=== PATIENT | female | born 1960 | race Caucasian/White ===

== ENCOUNTER 2025-02-22 14:47 | Emergency (ER) | payer MEDICARE, MEDICAID, SELFPAY ==
--- OUTSIDE RECORDS SUMMARY | 2025-02-22 14:57 | XMS_ITS | Clinical Summary ---
Author Organization [facility] Address [address] [place] [address] Care Team Providers Care Public Health Name Role Phone Julio Hartman MD Primary Care Provider [phone] Allergies Active Allergy Reactions Criticality Noted Date Comments Alpha-Gal (Crkqgloxf-Nxvwn-9,3-G alactose) Rash,Swelling Low 01/15/2025 Dexamethasone Other (See Comments) 09/29/2021 Shortness of breath and urinary incontinence Venom-Wasp Anaphylaxis High 06/28/2023 Medications multivitamin (DAILY-MORGAN) tablet Take 1 Tablet by mouth daily. Active EPINEPHrine (EPIPEN) 0.3 mg/0.3 mL Auto-InjectorInd ications:History of anaphylaxis Inject 0.3 mL (0.3 mg) by intramuscular injection 1 time daily as needed for Anaphylaxis. 1 Each 1 10/02/19 24 Active ketoconazole (NIZORAL) 2 % ShampooIndicatio ns:Tinea Apply 5 mL to affected area daily. 120 mL 5 10/02/19 24 Active rosuvastatin (CRESTOR) 20 mg tabletIndication s:Mixed hyperlipidemia,H istory of [place] (myocardial infarction) Take 1 Tablet (20 mg) by mouth daily. 100 Tablet 3 07/16/19 25 Active lisinopriL (PRINIVIL) 10 mg tabletIndication s:HTN (hypertension), benign Take 1 Tablet (10 mg) by mouth daily. 100 Tablet 3 07/16/19 25 Active albuterol sulfate HFA 90 mcg/actuation aerosol inhalerIndicatio ns:Chronic obstructive pulmonary disease, unspecified COPD type (CMS/HCC) Take 2 Puffs by inhalation every 4 hours as needed for Shortness of Breath. 9 Gram 2 07/16/19 25 Active formoterol (Perforomist) 20 mcg/2 mL Solution for Nebulization USE 1 VIAL IN NEBULIZER TWICE DAILY - - Morning And Evening 100 mL 11 07/23/19 25 Active budesonide (PULMICORT RESPULE) 0.5 mg/2 mL Suspension for Nebulization USE 1 VIAL IN NEBULIZER TWICE DAILY - - Rinse Mouth After Treatment 100 mL 07/23/19 25 Active hydrOXYzine HCL (ATARAX) 10 mg tabletIndication s:Rash and nonspecific skin eruption Take 1 Tablet (10 mg) by mouth 3 times daily as needed for Itching. 45 Tablet 12/21/19 25 Active cetirizine (ZyrTEC) 10 mg tablet Take 10 mg by mouth daily. Active spironolactone (ALDACTONE) 25 mg tablet Take 1 Tablet (25 mg) by mouth daily. 30 Tablet 5 02/15/20 25 Active Active Problems Problem Noted Date Diagnosed Date Cirrhosis of liver with ascites 02/14/2025 Fatty liver 01/15/2025 Moderate major depression 01/15/2025 Liver disease 08/23/2023 Splenomegaly 08/23/2023 Diverticulosis 08/23/2023 Calculus of gallbladder with out cholecystitis without obstruction 08/23/2023 Bilateral renal cysts 08/23/2023 History of anaphylaxis 10/04/2021 History of juvenile arthritis 10/04/2021 H/O solitary pulmonary nodule 10/04/2021 HTN (hypertension), benign 03/09/2021 Family history of [place] (my[place] infarction) History of [place] (myocardial infarction) 03/09/2021 History of colon polyps 03/09/2021 COPD (chronic obstructive pulmonary disease) 07/2018 Hyperlipidemia 09/18/2014 Tobacco abuse 08/19/2014 History of breast cancer in female 08/19/2014 Iron deficiency anemia 08/19/2014 Hypokalemia 07/04/2014 Knee pain 02/16/2012 Unspecified internal derangement of knee 012 Resolved Problems Problem Noted Date Diagnosed Date Resolved Date Severe obesity (BMI 35.0-39. 9) with comorbidity 03/09/2021 07/15/2024 Abnormal liver function test 09/18/2014 03/09/2021 Chest pain 07/04/2014 03/09/2021 Encounters Date Type Department Care Team Description 02/10/[address] [phone] Julio Hartman MD Provider Call 02/05/2025 5:32 PM SENIOR DATA WAREHOUSE DEVELOPER - 02/05/2025 11:59 PM SENIOR DATA WAREHOUSE DEVELOPER Hospital Encounter [facility] [address] [place] [phone] Julio Hartman MD Discharge Disposition: Home or Self Care 01/22/2025 1:42 PM SENIOR DATA WAREHOUSE DEVELOPER - 01/22/2025 11:59 PM SENIOR DATA WAREHOUSE DEVELOPER Hospital Encounter [address] [place] [phone] Julio Hartman MD Discharge Disposition: Home or Self Care 01/22/2025 Results Follow-Up [address] [phone] Julio Hartman MD US VENOUS DOPPLER LEG LEFT, PROTIME-INR, LIVER FIBROSIS, FIBROSIS-4 (FIB-4) INDEX PANEL, Additional followed-up results: 4 01/15/2025 2:40 PM CDT Office Visit [address] [phone] Julio Hartman MD Medicare annual wellness visit, subsequent (Primary Dx); Screening mammogram, encounter for; Pain and swelling of left lower extremity; Fatty liver; Scabies; Allergic reaction to alpha-gal; Abnormal findings on diagnostic imaging of liver and biliary tract; Moderate major depression (CMS/HCC) 01/07/2025 External Device Data ST[facility] ABSTRACTION Provider, Abstract 01/02/2025 Results Follow-Up [address] [phone] Sarah Eddy NP ALLERGY PANEL, FOOD AND TREE NUTS W/COMP, ALPHA-GAL PANEL 12/31/2024 10:40 AM CDT Office Visit [address] [phone] Sarah Eddy NP Scabies (Primary Dx); Cellulitis of left lower extremity; Urticaria; Abdominal pain, unspecified abdominal location; Allergic contact dermatitis, unspecified trigger 12/11/2024 2:20 PM CDT Office Visit [facility] [place] [address] [facility] [address] [place] [address] Monica Chen, FITO Cellulitis of left lower extremity (Primary Dx); Edema leg from Last 3 Months Immunizations Immunization Administration Dates Next Due INFLUENZA VACCINE HIGH DOSE TRIVALENT SPLIT VIRUS, (65 YR UP), 0.5ML (PF), IM 01/15/2025 Family History Medical History Relation Name Comments Cancer Father Colon Cancer Father Heart Disease Father Other Mother Thyroid Disease Mother Lung Cancer Paternal Aunt Diabetes Paternal Grandmother Heart Disease Sister Depression Son Breast Cancer Neg Hx SELF POSITIVE RESPONSE Kidney Disease Neg Hx Liver Disease Neg Hx Ovarian Cancer Neg Hx Stroke Neg Hx Relation Name Status Comments Father Mother Paternal Aunt Paternal Grandmother Sister Son Social History Tobacco Use Types Packs/Day Years Used Date Smoking Tobacco: Every Day Cigarettes 0.5 37 Smokeless Tobacco: Never Tobacco Cessation:Ready to Q uit: No; Counseling Given: Yes Alcohol Use Standard Drinks/Week Comments No 0 (1 standard drink = 0.6 oz pur e alcohol) Financial Resource Strain Answer Date R ecorded How hard is it for you to pa y for the very basics like food, housing, medical care, and heating? Patient declined 05/13/2022 Food Insecurity Answer Date Recorded In the past 12 months, have you worried that your food would run out before you had money to buy more? Patient declined 2022 In the past 12 months, did y ou run out of food and didn't have money to buy more? Patient declined 05/13/2022 Transportation Needs Answer Date Record ed In the past 12 months, has l ack of transportation kept you from medical appointments or from getting medications? Patient declined 05/13/2022 Lack of Transportation (Non-Medical) Not on file 05/13/2022 Feeling Safe Answer Date Recorded Are you in a relationship wi th someone who hurts you emotionally and/or physically? No 08/25/2024 Comments No Sex and Gender Information Value Date Recorded Sex Assigned at Not on file Legal Sex Female 6:17 AM SENIOR DATA WAREHOUSE DEVELOPER Gender Identity Not on file Sexual Orientation Not on file Last Filed Vital Signs Vital Sign Reading Time Taken Comments Blood Pressure 108/78 01/15/2025 2:38 PM CDT Pulse 87 01/15/2025 2:38 PM CDT Temperature 36.4 C (97.6 F) 01/15/2025 2:38 PM CDT Respiratory Rate 16 01/15/2025 2:38 PM CDT Oxygen Saturation 100% 01/15/2025 2:38 PM CDT Inhaled Oxygen Concentration - - Weight 75.6 kg (166 lb 9.6 oz) 01/15/2025 2:38 P M CDT Height 152.4 cm (5') 01/15/2025 2:38 PM CDT Body Mass Index 32.54 01/15/2025 2:38 PM CDT Plan of Treatment Upcoming Encounters Date Type Department Care Team (Late st Contact Info) Description 07/15/2025 10:00 AM CDT Office Visit [address] [phone] Monica Chen, FITO [address] [address] 01/19/2026 11:00 AM SENIOR DATA WAREHOUSE DEVELOPER Office Visit [address] [phone] Julio Hartman MD [address] [address] Health Maintenance Due Date Last Done Comments DTAP/TDAP/TD VACCINES (1 - Tdap) 07/13/1978 PNEUMOCOCCAL VACCINE 50+ YEA RS (1 of 2 - PCV) 07/13/1978 FIT-DNA Q 3 years 07/13/2004 FIT/FOBT Q 1 year 07/13/2004 Flex Sig/CT Colonography Q 5 years 07/13/2004 RSV VACCINE (60+ or ) (1 - Risk 50-74 years 1-dose series) 07/13/2009 ZOSTER VACCINE (1 of 2) 07/13/2009 BREAST CANCER SCREENING 09/09/2015 09/08/2014, 09/05 Pre-Diabetes and Diabetes Screening 08/28/2017 08/28/2014 OSTEOPOROSIS SCREENING 07/13/2024 COVID-19 Vaccine (2 6 season) 2024 09/24/2020, 08/21/2020 COLORECTAL SCREENING 07/10/2026 07/11/2023, 07/11/2023, 09/03/2014 Colorectal Cancer Screening 07/10/2026 INFLUENZA VACCINE Completed 01/15/2025, , 11/22/2022, Additional history exists Medicare Ad[place] ([place]) Preventative Visit/Annual Wellness Visit Completed 01/15/2025, 05/13/2022 Procedures Procedure Name Priority Date/Time Associated Diagnosis Comments US ABDOMEN LIMITED Routine 02/05/2025 6: 21 PM SENIOR DATA WAREHOUSE DEVELOPER Fatty liver US VENOUS DOPPLER LEG LEFT Stat 01/22/2025 2:23 PM SENIOR DATA WAREHOUSE DEVELOPER Pain and swelling of left lower extremity CBC WITH DIFFERENTIAL Routine 01/15/2025 3:42 PM CDT Fatty liver COMPREHENSIVE METABOLIC PANEL Routine 01/15/2025 3:42 PM CDT Fatty liver ALPHA FETOPROTEIN TUMOR MARKER Routine 01/15/2025 3:42 PM CDT Fatty liver Abnormal findings on diagnostic imaging of liver and biliary tract LIVER FIBROSIS, FIBROSIS-4 (FIB-4) INDEX PANEL Routine 01/15/2025 3:42 PM CDT Fatty liver PROTIME-INR Routine 01/15/2025 3:42 PM CDT Fatty liver ALPHA-GAL PANEL Routine 12/31/2024 11:17 AM CDT Abdominal pain, unspecified abdominal location Allergic contact dermatitis, unspecified trigger ALLERGY PANEL, FOOD AND TREE NUTS W/COMP Routine 12/31/2024 11:17 AM CDT Abdominal pain, unspecified abdominal location Allergic contact dermatitis, unspecified trigger COLONOSCOPY REPORT 07/11/2023 2: 30 PM CDT MAMMO SCREEN BILAT W OR WO CAD Routine 09/05/2014 3:45 PM CDT Other screening mammogram HEMOGLOBIN A1C Routine 08/28/2014 8:25 AM CDT from Last 3 Months or Most Recently Relevant to Health Maintenance Results * US ABDOMEN LIMITED (02/05/2025 6:21 PM SENIOR DATA WAREHOUSE DEVELOPER) Anatomical Region Laterality Modality Abdomen Ultrasound 02/05/2025 6:21 PM SENIOR DATA WAREHOUSE DEVELOPER Impressions 02/07/2025 11:03 AM SENIOR DATA WAREHOUSE DEVELOPER IMPRESSION: 1. Cirrhotic morphology of the liver. 2. No hepatic mass is identified. 3. Small to moderate amount of ascites. 4. Cholelithiasis. 5. Nonspecific mild diffuse wall-thickening of the gallbladder. This could be due to congestive heart failure, cirrhosis, hepatitis, ascites, cholecystitis, or nearby inflammatory process. Narrative 02/07/2025 11:03 AM SENIOR DATA WAREHOUSE DEVELOPER EXAM: US ABDOMEN LIMITED, DIAGNOSIS/REASON FOR EXAM: Fatty liver. DATE: 02/05/2025 6:21 PM. COMPARISON: None. TECHNIQUE: Multiplanar real-time ultrasonography of the right upper quadrant using de la fuente-scale imaging, supplemented by color and spectral Doppler as needed. FINDINGS: * Liver: The liver is normal in size and nodular in contour. Its parenchyma is diffusely coarsened in echotexture. No hepatic mass is identified. Portal venous flow is hepatopedal. * Gallbladder: The gallbladder is mildly distended. It contains a few small echogenic gallstones with posterior shadowing. The largest measures 2.4 x 2.1 cm. There is mild diffuse gallbladder wall-thickening. * Pancreas: The partially visualized pancreas is unremarkable. * Biliary: No intrahepatic or extrahepatic biliary ductal dilatation is seen. The common bile duct measures 7 mm. * Right kidney: The right kidney measures 11.1 cm in length. Its parenchyma is normal in echotexture. No right renal masses or renal calculi are identified. There is no right hydronephrosis. * Peritoneum: A kzpng-mo-dftlzmec amount of anechoic free intraperitoneal fluid is seen in all four quadrants of the abdomen. Procedure Note Pio Forrester MD - 02/07/2025 EXAM: US ABDOMEN LIMITED, DIAGNOSIS/REASON FOR EXAM: Fatty liver. DATE: 02/05/2025 6:21 PM. COMPARISON: None. TECHNIQUE: Multiplanar real-time ultrasonography of the right upper quadrant using de la fuente-scale imaging, supplemented by color and spectral Doppler as needed. FINDINGS: * Liver: The liver is normal in size and nodular in contour. Its parenchyma is diffusely coarsened in echotexture. No hepatic mass is identified. Portal venous flow is hepatopedal. * Gallbladder: The gallbladder is mildly distended. It contains a few small echogenic gallstones with posterior shadowing. The largest measures 2.4 x 2.1 cm. There is mild diffuse gallbladder wall-thickening. * Pancreas: The partially visualized pancreas is unremarkable. * Biliary: No intrahepatic or extrahepatic biliary ductal dilatation is seen. The common bile duct measures 7 mm. * Right kidney: The right kidney measures 11.1 cm in length. Its parenchyma is normal in echotexture. No right renal masses or renal calculi are identified. There is no right hydronephrosis. * Peritoneum: A hpjdc-gc-xyiiqksk amount of anechoic free intraperitoneal fluid is seen in all four quadrants of the abdomen. IMPRESSION: 1. Cirrhotic morphology of the liver. 2. No hepatic mass is identified. 3. Small to moderate amount of ascites. 4. Cholelithiasis. 5. Nonspecific mild diffuse wall-thickening of the gallbladder. This could be due to congestive heart failure, cirrhosis, hepatitis, ascites, cholecystitis, or nearby inflammatory process. Julio Hartman MD US ORDERABLES Final Res ult * US VENOUS DOPPLER LEG LEFT (01/22/2025 2:23 PM SENIOR DATA WAREHOUSE DEVELOPER) Anatomical Region Laterality Modality Lower Extremity Ultrasound 01/22/2025 2:23 PM SENIOR DATA WAREHOUSE DEVELOPER Impressions 01/22/2025 2:36 PM SENIOR DATA WAREHOUSE DEVELOPER IMPRESSION: 1. No sonographic evidence of a DVT in the right lower extremity. 2. Mild right inguinal lymphadenopathy. Narrative 01/22/2025 2:36 PM SENIOR DATA WAREHOUSE DEVELOPER EXAM: US VENOUS DOPPLER LEG LEFT DIAGNOSIS/REASON FOR EXAM: Pain and swelling of left lower extremity. DATE AND TIME: 01/22/2025, 2:23 PM. COMPARISON: None. TECHNIQUE: Grayscale and color Doppler transversal longitudinal ultrasound images of the deep veins of the left lower extremity were obtained. FINDINGS: The left common femoral, superficial femoral, profunda femoral, popliteal, posterior tibial and peroneal veins are anechoic and compressible. Spontaneous flow is demonstrated within the right common femoral and popliteal veins. A right inguinal lymph node measures 2.8 x 1.1 x 4.3 cm. A second right inguinal lymph node measures 1.6 x 0.7 x 3.4 cm. These lymph nodes have retiform contours, centimeters with fatty sharon. Procedure Note Pio Forrester MD - 01/22/2025 EXAM: US VENOUS DOPPLER LEG LEFT DIAGNOSIS/REASON FOR EXAM: Pain and swelling of left lower extremity. DATE AND TIME: 01/22/2025, 2:23 PM. COMPARISON: None. TECHNIQUE: Grayscale and color Doppler transversal longitudinal ultrasound images of the deep veins of the left lower extremity were obtained. FINDINGS: The left common femoral, superficial femoral, profunda femoral, popliteal, posterior tibial and peroneal veins are anechoic and compressible. Spontaneous flow is demonstrated within the right common femoral and popliteal veins. A right inguinal lymph node measures 2.8 x 1.1 x 4.3 cm. A second right inguinal lymph node measures 1.6 x 0.7 x 3.4 cm. These lymph nodes have retiform contours, centimeters with fatty sharon. IMPRESSION: 1. No sonographic evidence of a DVT in the right lower extremity. 2. Mild right inguinal lymphadenopathy. Julio Hartman MD US ORDERABLES Final Res ult * (ABNORMAL) LIVER FIBROSIS, FIBROSIS-4 (FIB-4) INDEX PANEL (01/15/2025 3:42 PM CDT) FIB 4 INDEX 5.79 [facility] FIB 4 INTERPRETATION [facility] Comment: Individuals with NAFLD: FIB-4 index result >2.67 is consistent with the presence of advanced liver fibrosis (F3-F4). Individuals with Hepatitis B: FIB-4 index result >2.65 is consistent with the presence of advanced liver fibrosis (F3-F4). Individuals with Hepatitis C: FIB-4 index result >3.25 is consistent with the presence of advanced liver fibrosis (F3-F4). FIB-4 Index Additional Test Information: The FIB-4 index is a score calculated from patient age and three laboratory measures (AST, ALT, and platelet count) to assess likelihood of advanced liver fibrosis (stage F3 or F4) in individuals with NAFLD (nonalcoholic fatty liver disease), Hepatitis B, or Hepatitis C. Patient characteristics and clinical features should guide interpretation. The application of the FIB-4 index to evaluate NAFLD in pediatric age groups is limited. FIB-4 index ranges for individuals with NAFLD: Low <1.30 Indeterminate 1.30-2.67 High >2.67 FIB-4 index ranges for individuals with Hepatitis B: Low <1.00 Indeterminate 1.00-2.65 High >2.65 FIB-4 index ranges for individuals with Hepatitis C: Low <1.45 Indeterminate 1.45-3.25 High >3.25 References: Anthony ASIF, Mae A, Harpal K, et al. Comparison of noninvasive markers of fibrosis in patients with nonalcoholic fatty liver disease. Clin Gastroenterol Hepatol. 2009;7(10):7389-4799. doi:10.1016/j.cgh.2009.05.033 Eriberto KEE, Марина JOLLEY, et al. A practical clinical approach to liver fibrosis. [place] Med J. 2018;59(12):628-633. Doi:10.99352/smedj.5586139 For additional resources, please visit: [email or web address].com/NAFLD AST 54(H) 10 - 35 U/L [facility] ALT 19 6 - 29 U/L [facility] PLATELETS 139(L) 140 - 400 Thousand/ uL [facility] Comment: Test Performed at: [facility] [address] [address] [address] Freedom Mtz MD Blood 01/15/2025 3:42 PM CDT 01/16/2025 3:11 AM CDT Julio Hartman MD CHEMISTRY ORDERABLES Melodie l Result Performing Organization Address City/[facility]/ZIP Co de Phone Number [facility] [phone] [facility] [address] [place] [address] * ALPHA FETOPROTEIN TUMOR MARKER (01/15/2025 3:42 PM CDT) [facility] ALPHA FETOPROTEIN TUMOR MARKER 3.9 ng/mL [facility] [place] Comment: Reference Range: <6.1 The use of AFP as a tumor marker in females is not recommended. This test was performed using the Rolando Woodbury chemiluminescent method. Values obtained from different assay methods cannot be used interchangeably. AFP levels, regardless of value, should not be interpreted as absolute evidence of the presence or absence of disease. Test Performed at: [facility] [address] [address] Cooper Beka Robertson Blood 01/15/2025 3:42 PM CDT 01/16/2025 3:11 AM CDT Julio Hartman MD CHEMISTRY ORDERABLES Melodie l Result Performing Organization Address [facility] Co de Phone Number [facility] [phone] [address] [place] [address] * (ABNORMAL) CBC WITH DIFFERENTIAL (01/15/2025 3:42 PM CDT) [facility] WBC 4.2 3.8 - 10.8 Thousand/u L [facility] RBC 3.48(L) 3.80 - 5.10 Million/uL [facility] HEMOGLOBIN 8.5(L) 11.7 - 15.5 g/dL [facility] HEMATOCRIT 25.7(L) 35.0 - 45.0 % [facility] MCV 73.9(L) 80.0 - 100.0 fL [facility] MCH 24.4(L) 27.0 - 33.0 pg [facility] MCHC 33.1 32.0 - 36.0 g/dL [facility] Comment: For adults, a slight decrease in the calculated MCHC value (in the range of 30 to 32 g/dL) is most likely not clinically significant; however, it should be interpreted with caution in correlation with other red cell parameters and the patient's clinical condition. RDW 17.9(H) 11.0 - 15.0 % [facility] PLATELETS 139(L) 140 - 400 Thousand/u L [facility] MPV 7.5 - 12.5 fL [facility] Comment: Due to platelet or RBC variability in size or shape the result cannot be reported accurately. NEUTROPHIL ABSOLUTE 1,176(L) 1,500 - 7,800 cells/uL [facility] LYMPHOCYTE ABSOLUTE 1,814 850 - 3,900 cells/uL [facility] MONOCYTE ABSOLUTE 500 200 - 950 cells/uL [facility] EOSINOPHIL ABSOLUTE 668(H) 15 - 500 cells/uL [facility] BASOPHILS ABSOLUTE 42 0 - 200 cells/uL [facility] NEUTROPHIL 28 % [facility] LYMPHOCYTES 43.2 % [facility] MONOCYTE 11.9 % [facility] EOSINOPHILS 15.9 % [facility] BASOPHILS 1.0 % [facility] Comment: Test Performed at: [facility] [address] [place] [address] Freedom Mtz MD Blood 01/15/2025 3:42 PM CDT 01/16/2025 3:11 AM CDT Julio Hartman MD HEMATOLOGY ORDERABLES Fin al Result [facility] [phone] [facility] [address] [facility] [place] [address] * (ABNORMAL) PROTIME-INR (01/15/2025 3:42 PM CDT) INR 1.3(H) [facility] Comment: Reference Range 0.9-1.1 Moderate-intensity Warfarin Therapy 2.0-3.0 Higher-intensity Warfarin Therapy 3.0-4.0 PROTIME 13.0(H) 9.0 - 11.5 sec [facility] Comment: For additional information, please refer to http://education.Locally/faq/HBU848 (This link is being provided for informational/ educational purposes only.) Test Performed at: [facility] [address] [place] [address] Freedom Mtz MD Blood 01/15/2025 3:42 PM CDT 01/16/2025 3:11 AM CDT us Julio Hartman MD HEMATOLOGY ORDERABLES Fin al Result [facility] [phone] [facility] [address] [place] [address] * (ABNORMAL) COMPREHENSIVE METABOLIC PANEL (01/15/2025 3:42 PM CDT) Pathologist [facility] GLUCOSE 87 65 - 99 mg/dL [facility] Comment: Fasting reference interval BUN 8 7 - 25 mg/dL [facility] CREATININE 0.64 0.50 - 1.05 mg/dL [facility] GFR 98 > OR = 60 mL/min/1. 73m2 [facility] BUN/CREAT RATIO SEE NOTE: 6 - 22 (calc) [facility] Comment: Not Reported: BUN and Creatinine are within reference range. SODIUM 138 135 - 146 mmol/L [facility] POTASSIUM 3.0(L) 3.5 - 5.3 mmol/L [facility] CHLORIDE 107 98 - 110 mmol/L [facility] CO2 25 20 - 32 mmol/L [facility] CALCIUM 8.2(L) 8.6 - 10.4 mg/dL [facility] TOTAL PROTEIN 6.6 6.1 - 8.1 g/dL [facility] ALBUMIN 2.9(L) 3.6 - 5.1 g/dL [facility] GLOBULIN 3.7 1.9 - 3.7 g/dL (calc) [facility] ALBUMIN/GLOBULIN RATIO 0.8(L) 1.0 - 2.5 (calc) [facility] BILIRUBIN TOTAL 3.7(H) 0.2 - 1.2 mg/dL [facility] ALKALINE PHOSPHATASE 108 37 - 153 U/L [facility] AST 54(H) 10 - 35 U/L [facility] ALT 19 6 - 29 U/L [facility] Comment: Test Performed at: [facility] [address] [place] [address] Freedom Mtz MD Blood 01/15/2025 3:42 PM CDT 01/16/2025 3:11 AM CDT Julio Hartman MD CHEMISTRY ORDERABLES [facility] Result [facility] [phone] [facility] [address] [place] [address] * (ABNORMAL) ALLERGY PANEL, FOOD AND TREE NUTS W/COMP (12/31/2024 11:17 AM CDT) ALLERGEN EGG WHITE <0.10 kU/L [facility] ALLERGEN EGG WHITE CLASS 0 [facility] ALLERGEN PEANUT <0.10 kU/L [facility] ALLERGEN PEANUT CLASS 0 [facility] WHEAT IGE <0.10 kU/L [facility] ALLERGEN WHEAT CLASS 0 [facility] WALNUT IGE <0.10 kU/L [facility] ALLERGEN WALNUT CLASS 0 [facility] ALLERGEN CODFISH <0.10 kU/L [facility] ALLERGEN CODFISH CLASS 0 [facility] ALLERGEN MILK 0.74(H) kU/L [facility] ALLERGEN MILK CLASS 2 [facility] SOYBEAN IGE <0.10 kU/L [facility] ALLERGEN SOYBEAN CLASS 0 [facility] SHRIMP IGE 0.72(H) kU/L [facility] ALLERGEN SHRIMP CLASS 2 [facility] SCALLOP IGE <0.10 kU/L [facility] ALLERGEN SCALLOP CLASS 0 [facility] SESAME SEED IGE <0.10 kU/L [facility] ALLERGEN SESAME SEED CLASS 0 [facility] ALLERGEN HAZELNUT <0.10 kU/L [facility] ALLERGEN HAZELNUT CLASS 0 [facility] ALLERGEN CASHEW NUT <0.10 kU/L [facility] ALLERGEN CASHEW NUT CLASS 0 [facility] ALLERGEN ALMOND <0.10 kU/L [facility] ALLERGEN ALMOND CLASS 0 [facility] SALMON IGE <0.10 kU/L [facility] ALLERGEN SALMON CLASS 0 [facility] TUNA IGE <0.10 kU/L [facility] ALLERGEN TUNA CLASS 0 [facility] ALLERGEN BRAZIL NUT <0.10 kU/L [facility] BRAZIL NUT % RESPONSE (CLASS) 0 [facility] ALLERGEN MACADAMIA <0.10 kU/L [facility] MACADAMIA CLASS 0 [facility] ALPHA-LACTALBUMIN (F76) IGE <0.10 kU/L [facility] ALLERGEN ALPHA-LACTALBUMIN CLASS 0 [facility] ALLERGEN BETA-LACTOGLOB <0.10 kU/L [facility] ALLERGEN BETA-LACTOGLOB CLASS 0 [facility] ALLERGEN CASEIN <0.10 kU/L [facility] CASEIN % RESPONSE (CLASS) 0 [facility] Comment: IgE reactivity to whole milk without reactivity to Prudencio d 4, Prudencio d 5, or Prudencio d 8, may be explained by IgE reactivity to other cow's milk proteins or non-protein milk constituents. Additional information can be found at [email or web address] [email or web address] ALLERGY PANEL INTERP [facility] Comment: Specific Level of Allergen IGE Class kU/L Specific IGE Antibody ----- --------- 0 <0.10 Absent/Undetectable 0/1 0.10-0.34 Very Low Level 1 0.35-0.69 Low Level 2 0.70-3.49 Moderate Level 3 3.50-17.4 High Level 4 17.5-49.9 Very High Level 5 50-100 Very High Level 6 >100 Very High Level The clinical relevance of allergen results of 0.10-0.34 kU/L are undetermined and intended for specialist use. Allergens denoted with a include results using one or more analyte specific reagents. In those cases, the test was developed and its analytical performance characteristics have been determined by [facility]. It has not been cleared or approved by the U.S. Food and Drug Administration. This assay has been validated pursuant to the CLIA regulations and is used for clinical purposes. Test Performed at: [facility] [address] [place] [id number] Freedom Mtz MD Blood 12/31/2024 11:1 7 AM CDT 01/01/2025 3:47 AM CDT us Sarah Eddy NP CHEMISTRY ORDERABLES Final Res ult [facility] [phone] [facility] [id number] * (ABNORMAL) ALPHA-GAL PANEL (12/31/2024 11:17 AM CDT) ALLERGEN BEEF 11.00(H) kU/L [facility], ALLERGEN BEEF (F27) CLASS 3 [facility], LEONARD (F88) IGE 4.74(H) kU/L [facility], ALLERGEN LEONARD (F88) CLASS 3 [facility], ALLERGEN PORK 2.60(H) kU/L [facility], ALLERGEN PORK (F26) CLASS 2 [facility], GALACTOSE - ALPHA -1, 3 - GALACTOSE, IGE 20.4(H) <0.10 kU/L [facility], Comment: Results above 0.1 kU/L indicate an allergen-specific IgE sensitization to [id number]-u-6,3-galactose, and such patients are at risk for delayed allergic reactions following beef, pork, or leonard consumption. Circulating IgE antibodies may remain undetectable despite a convincing clinical history because these antibodies may be directed towards allergens revealed or altered during industrial processing, cooking, or digestion and therefore do not exist in the original food for which the patient is tested. Sometimes individuals diagnosed with chronic urticaria may develop IgE antibodies directed against human thyroglobulin. Such antibodies may cross-react with the bovine thyroglobulin used in ImmunoCAP(R) Allergen o215, alpha-Gal, leading to a false-positive test result. A definitive diagnosis should be based on the evaluation of both clinical and laboratory findings and not on any single diagnostic method. Additional information can be found at [email or web address] [email or web address] Test Performed at: [facility], [address] [place], [place] Linda Sorenson MD,PhD,[place] Blood 12/31/2024 11:1 7 AM CDT 01/01/2025 3:47 AM CDT us Sarah Eddy NP CHEMISTRY ORDERABLES Final Res ult [facility] [phone] [facility], [address] [place], [place] * COLONOSCOPY REPORT (07/11/2023 2:30 PM CDT) Narrative Procedure Note José Miguel Collado MD - 07/11/2023 2:30 PM CDT [facility] GI Patient Name: Dasha Thornton Procedure Date: 07/11/2023 Date of : 1960 Admit Type: Outpatient Age: 62 Attending MD: José Miguel Collado MD, Procedure: Colonoscopy Indications: FH CRC. Reports negative genetic testing Providers: José Miguel Collado MD Referring MD: Julio Hartman Medicines: Midazolam 10 mg IV, Fentanyl 100 micrograms IV Complications: No immediate complications. Procedure: After I obtained informed consent, the scope was passed under direct vision. Throughout the procedure, the patient's blood pressure, pulse, and oxygen saturations were monitored continuously. The Colonoscope was introduced through the anus and advanced to the cecum, identified by appendiceal orifice and ileocecal valve. The quality of the bowel preparation was adequate. Estimated Blood Loss: Estimated blood loss was minimal. Findings: Non-bleeding internal hemorrhoids were found. The hemorrhoids were Grade I (internal hemorrhoids that do not prolapse). Scattered small-mouthed diverticula were found in the sigmoid colon. Two sessile polyps were found in the transverse colon. The polyps were 4 mm in size. These polyps were removed with a cold snare. Resection and retrieval were complete. Moderate Sedation: Moderate (conscious) sedation was administered by the nurse and supervised by the endoscopist. The following parameters were monitored: oxygen saturation, heart rate, blood pressure, and response to care. Total physician intraservice time was 17 minutes. Impression: - Non-bleeding internal hemorrhoids. - Diverticulosis in the sigmoid colon. - Two 4 mm polyps in the transverse colon, removed with a cold snare. Resected and retrieved. Recommendation: - Await pathology results. - Repeat colonoscopy in 3 - 5 years for surveillance. José Miguel Collado MD 07/11/2023 2:30:22 PM Number of Addenda: 0 Note Initiated On: 07/11/2023 2:02 PM Scope Withdrawal Time 0 hours 8 minutes 3 seconds Scope In: 2:13:50 PM Scope Out: 2:27:49 PM 5 Martita Ogfield MA us José Miguel Collado MD GI PROCEDURE ORDERABLES F inal Result * MAMMO SCREEN BILAT W OR WO CAD (09/05/2014 3:45 PM CDT) Anatomical Region Laterality Modality Breast Bilateral Other Impressions 09/08/2014 11:32 AM CDT Nodule or nodules on the left will require comparison with previous mammograms. Unless we can show stability over time, additional evaluation will be necessary. Tracie 1005 AM - uploaded from [employer] 09/08/2014 11:32 AM CDT Bilateral Digital Screening Mammogram: Screening mammogram on this 54-year-old female is presented. We do not have previous for comparison, but are attempting to obtain them. Patient gives history of previous malignant lumpectomy far laterally and posteriorly on the right. Breast tissue is of average density and asymmetrical. Right side appears unremarkable. There is a small nodule over the midportion of the left craniocaudad image and a small nodule suggested over the inferior portion of the left mediolateral oblique image. These may be the same, but I cannot be certain. No other area of suspicion on either side is seen. This digital mammogram was also analyzed by the Computer Aided Detection System (CAD), R2 ImageChecker, Version 8.3. Procedure Note Prosper Tobar MD - 08/04/2021 Bilateral Digital Screening Mammogram: Screening mammogram on this 54-year-old female is presented. We do not have previous for comparison, but are attempting to obtain them. Patient gives history of previous malignant lumpectomy far laterally and posteriorly on the right. Breast tissue is of average density and asymmetrical. Right side appears unremarkable. There is a small nodule over the midportion of the left craniocaudad image and a small nodule suggested over the inferior portion of the left mediolateral oblique image. These may be the same, but I cannot be certain. No other area of suspicion on either side is seen. This digital mammogram was also analyzed by the Computer Aided Detection System (CAD), R2 ImageChecker, Version 8.3. IMPRESSION Nodule or nodules on the left will require comparison with previous mammograms. Unless we can show stability over time, additional evaluation will be necessary. Tracie 1005 AM - uploaded from [employer] - Antonia Resendez MD MAMMO ORDERABLES Final Result * HEMOGLOBIN A1C (08/28/2014 8:25 AM CDT) HEMOGLOBIN A1C 5.1 4.0 - 6.0 % 08/28/2014 4:44 PM CDT [facility] Comment: Falsely low A1C measurements can occur when: 1. Anemia and/or hemolytic anemia is present. 2. Hemoglobin variants present. 3. Renal failure. 4. Transfusion of blood product in the last 120 days. We recommend ordering a fructosamine test([id number]) to more accurately assess glycemic status if any of the above conditions are present. Blood 08/28/2014 8:25 AM CDT 08/28/2014 8:26 AM CDT Antonia Resendez MD CHEMISTRY ORDERABLES Final Resul t [facility] CLIA# [id number] [address] [place] [address] from Last 3 Months or Most Recently Relevant to Health Maintenance Insurance [place]ICA[place] Advance Directives For more information, please contact: [phone] * Full Code (Latest Code Status on File) Date Activated Date Inactivated Comments 07/11/2023 1:33 PM 07/11/2023 5:20 PM Care Teams Public Health Relationship Specialty Start Date End Date Julio Hartman MD [address] [phone] PCP - General Family Practice 03/09/21
[2025-02-22 15:07] VITALS: BP 110/58; PULSE 98; RESP 17; TEMP 36.7; O2SAT 99
[2025-02-22 15:37] LABS: Hematocrit 28.5 % (36-47); Hemoglobin 8.70 g/dL (11.27-16.99); Mean Corpuscular HGB Conc 30.5 g/dL (30-55); Mean Corpuscular Hemoglobin 25.1 pg (27-33); Mean Corpuscular Volume 82.4 fl (85-98); Nucleated Red Blood Cells % 0 %; Platelet Count 70 10^3/cmm (157-399); Red Blood Count 3.46 10^6/uL (3.85-5.65); White Blood Count 4.65 10^3/uL (3.29-11.43)
--- NOTE | 2025-02-22 15:38 | CTR_ITS ---
PROCEDURE INFORMATION: Exam: CT Abdomen And Pelvis With Contrast Exam date and time: 02/22/2025 5:07 PM Age: 64 years old Clinical indication: Bloating; Additional info: Abdominal distention TECHNIQUE: Imaging protocol: Computed tomography of the abdomen and pelvis with contrast. Radiation optimization: All CT scans at this facility use at least one of these dose optimization techniques: automated exposure control; mA and/or kV adjustment per patient size (includes targeted exams where dose is matched to clinical indication); or iterative reconstruction. Contrast material: OMNIPAQUE 350; Contrast volume: 100 ml; Contrast route: INTRAVENOUS (IV); COMPARISON: No relevant prior studies available. RADIATION DOSE METRICS: Total DLP (mGy-cm): 870.09 FINDINGS: Lungs: Partially visualized lung bases are clear. Visualized chest includes: No abnormal findings. Liver: There is nodularity of the liver contour consistent with cirrhosis. Gallbladder and biliary ducts: There is cholelithiasis. There is mild gallbladder wall thickening and pericholecystic fluid which may be related to liver disease. Clinical correlation is recommended. Pancreas: Normal. No ductal dilation. Spleen: Normal. No splenomegaly. Adrenal glands: Normal. No mass. Kidneys and ureters: There is a 2.9 cm left renal upper pole cyst. There are multiple smaller cysts in the left kidney and multiple tiny cysts in the right kidney. There is no follow-up needed of these benign lesions. Stomach and bowel: Unremarkable. No obstruction. No mucosal thickening. Appendix: No evidence of appendicitis. Intraperitoneal space: There is a large amount of free fluid in the abdomen and pelvis. Vasculature: There is aortoiliac atherosclerosis. There is no evidence for aortic aneurysm. Lymph nodes: Unremarkable. No enlarged lymph nodes. Urinary bladder: Unremarkable as visualized. Reproductive: There is a large calcified uterine fibroid. Uterus is retroverted. Bones/joints: Unremarkable. No acute fracture. Soft tissues: There is subcutaneous body wall edema. CT/CT abdomen pelvis w con* [id number] IMPRESSION: 1. Nodular liver contour consistent with cirrhosis. 2. Cholelithiasis with mild gallbladder wall thickening with pericholecystic fluid possibly secondary to liver disease. Clinical correlation is recommended. If acute cholecystitis is a clinical concern, ultrasound of the gallbladder is recommended. 3. Large amount of ascites. 4. Generalized anasarca. Bosniak I and II: No follow-up is typically required unless the cyst becomes symptomatic. These cysts are considered benign and have a very low risk of malignancy. COMMENTS: Consistent with the [employer]'s Incidental Findings Committee white paper (J Am Isha Radiol 2018): Any incidental renal lesion less than 1 cm or classified as too small to characterize, or any incidental cystic renal lesion characterized as simple-appearing, is likely benign. No follow-up imaging is recommended for these lesions per consensus recommendations based on imaging criteria.
--- NOTE | 2025-02-22 15:39 | ED_ITS ---
Documented by User: ALMA DELIA Navarrete 02/22/25 19:41 HPI - Abdominal Pain 2 General: Chief Complaint: Abdominal Pain Stated Complaint: Dizzy ABD down Swelling Hard to breath Time Seen by Provider: 02/22/25 15:25 History of Present Illness: Patient is a 64-year-old female with history of smoking, presents to the ED with abdominal distention has been worsening over the last 2-4 weeks. She has had low-grade fever in the evening. Her abdominal distention is so bad, she feels like she is 9 months . She has been using a low-sodium diet. She is having shortness of breath. Nonproductive cough. She has early satiety. Nondrinker. Has not had a drink of alcohol in 21 years, and that was rare. She is unaware of fatty liver disease. See medical decision making. Associated Symptoms: Reports bloating and nausea; Denies chills, diarrhea, fever(s), heartburn and vomiting Related Data Allergies Allergy/AdvReac Type Severity Reaction Status Date / Time No Known Allergies Allergy Verified 02/22/25 15:13 Review of Systems 2 General: Reports: 10 or more systems reviewed and unremarkable except in HPI and below Const: Denies: fever(s) or chills Eyes: Denies: change in vision or blurry vision ENMT: Denies: throat pain or mouth pain Card: Denies: chest pain or palpitations Resp: Reports: dyspnea; Denies: non-productive cough GI: Reports: abdominal pain, nausea, early satiety and bloating; Denies: vomiting, heartburn or diarrhea : Denies: flank pain or difficulty voiding Musc: Denies: neck pain, back pain or extremity pain Skin/Breast: Denies: rash or pruritus Neuro: Reports: vertigo; Denies: headache(s), numbness in extremities, weakness in extremities, sensory changes, lack of coordination, frequent falls or dizziness Psych: Denies: anxiety or depression Physical Exam 2 Const: COMMON NORMALS: no acute distress, average body habitus, patient oriented x3, no limitations, healthy appearing, alert and well nourished HENMT: COMMON NORMALS: normocephalic, atraumatic and hearing grossly normal bilaterally HEAD & SCALP: normocephalic and atraumatic Eye: COMMON NORMALS: Equal, round and reactive pupils present, EOMs intact bilaterally, conjunctivae normal, no scleral icterus, no papilledema and normal visual cope by confrontation CONJUNCTIVA: Yes conjunctivae normal PUPIL: Yes Equal, round and reactive pupils present DIRECT OPHTHALMOSCOPY: Yes no papilledema Neck/C-Spine: COMMON NORMALS: full ROM and no lymphadenopathy GENERAL: Yes normal visual inspection Lymph: LYMPHATIC: no lymphadenopathy noted Resp: COMMON NORMALS: normal respiratory effort, No retractions and No use of accessory muscles EFFORT & INSPECTION: Yes able to speak in complete sentences AUSCULTATION: crackles (Lower lobes bilateral) and bronchial breath sounds (Upper lobes bilateral) Cardio: COMMON NORMALS: regular rate RATE: regular rate HEART SOUNDS: M urmur heart sound present (Late systolic 05/23) GI: COMMON NORMALS: Soft to palpation INSPECTION: Yes Abdominal wall edema, Yes Anasarca, Yes abdominal distension, No caput medusae present, Yes Fluid wave present and Yes gravid abdomen AUSCULTATION: Yes normoactive bowel sounds PALPATION: Yes Soft to palpation and Yes Ascites present PERCUSSION: Fluid wave present : COMMON NORMALS: Yes no CVA tenderness BLADDER/KIDNEY EXAM: Yes no CVA tenderness Back/Pelvis: COMMON NORMALS: no CVA tenderness Extremity: COMMON NORMALS: normal to inspection, full ROM and capillary refill normal Neuro: COMMON NORMALS: patient oriented x3 SENSORIUM/ORIENTATION: Yes alert Psych: COMMON NORMALS: mental status grossly normal, Normal thought process present, cooperative, normal affect, speech normal and activity/motor behavior normal SPEECH: Yes normal speech THOUGHT PROCESS: Normal thought process present Skin: COMMON NORMALS: no rashes or lesions noted, no wounds, turgor normal and no jaundice GENERAL SKIN EXAM: no rashes or lesions noted and turgor normal Course 2 Reevaluation(s): Reevaluation #1: Patient states she fully urinated after Lasix 80 mg Consultations: Consultation #1: Called [facility] Vital Signs: Vital signs: Vital Signs Temperature 98.0 F 02/22/25 15:07 Pulse Rate 97 02/22/25 19:19 Respiratory Rate 17 02/22/25 15:07 Blood Pressure 127/64 02/22/25 19:19 Pulse Oximetry 95 02/22/25 19:19 Oxygen Delivery Me thod Room Air 02/22/25 17:36 MDM - Abdominal Pain Medical Decision Making Patient is a 64-year-old female that presents to the emergency room with worsening lower extremity edema, and abdominal distention x 1 month. Patient states that she has association symptoms of shortness of breath, inability to eat. She states her abdomen appears to be like she is 9 months . And no longer has a primary care physician. Apparently she got in an argument with her primary care physician as she was asserting she needed help for this issue. She is a nondrinker. She drank rarely 21 years ago. She is unsure regarding any fatty liver disease. Her gallbladder is intact. She does not have any right upper quadrant pain. Patient has elevated AST, bilirubin, low platelets, low sodium, low albumin, elevated lipase. CT of her abdomen and pelvis shows a large amount of ascites. Patient also notes a low-grade fever at night. With all these concerns, she has received blood cultures, with differential including SBP, and coverage with Zosyn. Typically I would use Claforan, however not available at this institution. [facility], and accepting physician Dr. Ruiz. Patient will be transferred to [facility] for further evaluation and paracentesis. INR is pending. Acute hepatitis panel can be deferred to [facility]. She has received Lasix 80 mg here x 1. She has voided 4 times, unknown amounts. She states that she does start to feel less short of breath. X-ray is insignificant for fluid overload. After long discussion with patient, she is leery of going to [facility] for further workup, due to previous primary care physician not listening to her needs. This is understandable. I am concerned regarding her mortality which was discussed with patient. Patient then notes that she had rheumatic heart disease, and has known she had fatty liver for some time. No further workup was done. She did attempt to get into [place], however states she is not interested in transplant. She would like relief of symptoms, and more discovery. I did encourage her to go to [facility] as planned, and care has been discussed with hospitalist care team. Of note, patient is alert, awake, oriented x 5, and is allowed to refuse care per patient rights. Patient is aware of this. Medical Records I reviewed the patient's medical records. Lab Data I reviewed the patient's lab results. 02/22/25 15:30 02/22/25 15:30 Labs/Radiology: Radiology Impressions Abdomen/Pelvis CT 02/22/25 15:38 IMPRESSION: 1. Nodular liver contour consistent with cirrhosis. 2. Cholelithiasis with mild gallbladder wall thickening with pericholecystic fluid possibly secondary to liver disease. Clinical correlation is recommended. If acute cholecystitis is a clinical concern, ultrasound of the gallbladder is recommended. 3. Large amount of ascites. 4. Generalized anasarca. Bosniak I and II: No follow-up is typically required unless the cyst becomes symptomatic. These cysts are considered benign and have a very low risk of malignancy. COMMENTS: Consistent with the [employer]'s Incidental Findings Committee white paper (J Am Isha Radiol 2018): Any incidental renal lesion less than 1 cm or classified as too small to characterize, or any incidental cystic renal lesion characterized as simple-appearing, is likely benign. No follow-up imaging is recommended for these lesions per consensus recommendations based on imaging criteria. Chest X-Ray 02/22/25 19:01 IMPRESSION: No acute cardiopulmonary abnormality. Laboratory Results WBC 4.65 10^3/uL (3.29-11.43) 02/22/25 15:30 RBC 3.46 10^6/uL (3.85-5.65) L 02/22/25 15:30 Hgb 8.70 g/dL (11.27-16.99) L 02/22/25 15:30 Hct 28.5 % (36-47) L 02/22/25 15:30 MCV 82.4 fl (85-98) L 02/22/25 15:30 MCH 25.1 pg (27-33) L 02/22/25 15:30 MCHC 30.5 g/dL (30-55) 02/22/25 15:30 RDW 22.4 % (12.1-15.1) H 02/22/25 15:30 Plt Count 70 10^3/cmm (157-399) L 02/22/25 15:30 MPV Not Reportable 02/22/25 15:30 Neut % (Auto) 53.6 % 02/22/25 15:30 Lymph % (Auto) 29.5 % 02/22/25 15:30 [place] % (Auto) 13.3 % 02/22/25 15:30 Eos % (Auto) 2.8 % 02/22/25 15:30 Baso % (Auto) 0.6 % 02/22/25 15:30 Neut # (Auto) 2.49 10^3/uL (1.8-7.7) 02/22/25 15:30 Lymph # (Auto) 1.4 10^3/uL (0.8-4.8) 02/22/25 15:30 [place] # (Auto) 0.6 10^3/uL (0.2-0.9) 02/22/25 15:30 Eos # (Auto) 0.1 10^3/uL (0.0-0.8) 02/22/25 15:30 Baso # (Auto) 0.0 10^3/uL (0.0-0.1) 02/22/25 15:30 Nucleated RBC % (auto) 0 % 02/22/25 15: Nucleated RBCs # 0.0 /100WBC 02/22/25 15:30 PT 21.20 SECONDS (12.1-14.9) H 02/22/25 15:30 INR 1.71 (0.8-1.2) H 02/22/25 15:30 Sodium 132 mmol/L (136-145) L 02/22/25 15:30 Potassium 3.0 mmol/L (3.5-5.1) L 02/22/25 15:30 Chloride 96 mmol/L (98-107) L 02/22/25 15:30 Carbon Dioxide 27 mmol/L (22-29) 02/22/25 15:30 Anion Gap 12.0 (5-19) 02/22/25 15:30 BUN 9 mg/dL (8-23) 02/22/25 15:30 Creatinine 0.5 mg/dL (0.5-0.9) 02/22/25 15:30 GFR Calculation 123.8 mL/min (90-130) 02/22/25 15:30 Glucose 96 mg/dL (65-115) 02/22/25 15:30 Calculated Osmolality 273 mOsm/kg (285-295) L 02/22/25 15:30 Calcium 8.0 mg/dL (8.5-10.5) L 02/22/25 15:30 Magnesium 1.9 mg/dL (1.7-2.3) 02/22/25 15:30 Iron 49 ug/dL (37-145) 02/22/25 15:30 Transferrin 162 mg/dL (200-360) L 02/22/25 15: Ferritin 26 ng/mL (15-150) 02/22/25 15:30 Total Bilirubin 4.7 mg/dL (0.15-1.2) H 02/22/25 15:30 AST 54 U/L (0-32) H 02/22/25 15:30 ALT 18 U/L (0-33) 02/22/25 15:30 Alkaline Phosphatase 134 U/L (35-105) H 02/22/25 15:30 Ammonia 38 umol/L (11-51) 02/22/25 15: Lactate Dehydrogenase 224 U/L (135-214) H 02/22/25 15:30 C-Reactive Protein 14.5 mg/L (0.0-4.9) H 02/22/25 15:30 NT-Pro-B Natriuret Pep 93 pg/mL (0-125) 02/22/25 15:30 Total Protein 7.2 g/dL (6.6-8.7) 02/22/25 15:30 Albumin 2.6 g/dL (3.5-5.2) L 02/22/25 15:30 Globulin 4.6 g/dL (1.3-4.6) 02/22/25 15:30 Lipase 100 U/L (13-60) H 02/22/25 15:30 Urine Color [place] (Yellow) A 02/22/25 17:02 Urine Appearance Clear (CLEAR) 02/22/25 17:02 Urine pH 5.5 (5-7) 02/22/25 17:02 Ur Specific [place] 1.018 (1.005-1.030) 02/22/25 17:02 Urine Protein Negative (Negative) 02/22/25 17:02 Urine Glucose (UA) Negative (Normal) 02/22/25 17:02 Urine Ketones Negative (Negative) 02/22/25 17:02 Urine Blood 2+ (Negative) A 02/22/25 17:02 Urine Nitrate Negative (Negative) 02/22/25 17:02 Urine Bilirubin 1+ (Negative) H 02/22/25 17:02 Urine Urobilinogen 1.0 mg/dL (Negative) 02/22/25 17:02 Ur Leukocyte Esterase 1+ (Negative) A 02/22/25 17:02 Urine RBC 6-10 /hpf (0-2) 02/22/25 17:02 Urine WBC 0-5 /hpf (0-5) 02/22/25 17:02 Ur Squamous Epith Cells 6-10 /hpf (0-5) 02/22/25 17:02 Amorphous Sediment Not Reportable 02/22/25 17:02 Urine Bacteria None seen /hpf (NONE) 02/22/25 17:02 Hyaline Casts 0.40 /lpf 02/22/25 17:02 All radiology interpretation(s) finalized by discharge Discharge Plan Discharge Patient Disposition: Xfer Short-Term Hosp Clinical Impression: Acute hepatitis, Elevated bilirubin, Thrombocytopenia, Acute hypokalemia, Low serum albumin, Acute hyponatremia, Microcytic anemia Ascites Qualifiers: Ascites type: other type Qualified Code(s): R18.8 - Other ascites Condition: Stable Discharge Diet: Low Salt Patient Instructions: Abdominal Pain (ED), Patient Portal & Anabella Instructions Print Language: Kazakh Coding Level of Care Code [facility] Psych[facility] for Chg Fwd Documented by User: Kelby Burkett DO 02/23/25 00:18 HPI - Abdominal Pain 2 General: Chief Complaint: Abdominal Pain Stated Complaint: Dizzy ABD down Swelling Hard to breath Time Seen by Provider: 02/22/25 15:25 Related Data Allergies Allergy/AdvReac Type Severity Reaction Status Date / Time No Known Allergies Allergy Verified 02/22/25 15:13 Course 2 Vital Signs: Vital signs: Vital Signs Temperature 98.0 F 02/22/25 15:07 Pulse Rate 97 02/22/25 19:19 Respiratory Rate 17 02/22/25 15:07 Blood Pressure 127/64 02/22/25 19:19 Pulse Oximetry 95 02/22/25 19:19 Oxygen Delivery Me thod Room Air 02/22/25 17:36 MDM - Abdominal Pain Medical Decision Making Patient is a 64-year-old female that presents to the emergency room with worsening lower extremity edema, and abdominal distention x 1 month. Patient states that she has association symptoms of shortness of breath, inability to eat. She states her abdomen appears to be like she is 9 months . And no longer has a primary care physician. Apparently she got in an argument with her primary care physician as she was asserting she needed help for this issue. She is a nondrinker. She drank rarely 21 years ago. She is unsure regarding any fatty liver disease. Her gallbladder is intact. She does not have any right upper quadrant pain. Patient has elevated AST, bilirubin, low platelets, low sodium, low albumin, elevated lipase. CT of her abdomen and pelvis shows a large amount of ascites. Patient also notes a low-grade fever at night. With all these concerns, she has received blood cultures, with differential including SBP, and coverage with Zosyn. Typically I would use Claforan, however not available at this institution. [facility], and accepting physician Dr. Ruiz. Patient will be transferred to [facility] for further evaluation and paracentesis. INR is pending. Acute hepatitis panel can be deferred to [facility]. She has received Lasix 80 mg here x 1. She has voided 4 times, unknown amounts. She states that she does start to feel less short of breath. X-ray is insignificant for fluid overload. After long discussion with patient, she is leery of going to [facility] for further workup, due to previous primary care physician not listening to her needs. This is understandable. I am concerned regarding her mortality which was discussed with patient. Patient then notes that she had rheumatic heart disease, and has known she had fatty liver for some time. No further workup was done. She did attempt to get into [place], however states she is not interested in transplant. She would like relief of symptoms, and more discovery. I did encourage her to go to [facility] as planned, and care has been discussed with hospitalist care team. Of note, patient is alert, awake, oriented x 5, and is allowed to refuse care per patient rights. Patient is aware of this. Patient was originally seen by Ms. Beto PA-C. I agree with her history, evaluation, and treatment. Lab Data 02/22/25 15:30 02/22/25 15:30 Labs/Radiology: Radiology Impressions Abdomen/Pelvis CT 02/22/25 15:38 IMPRESSION: 1. Nodular liver contour consistent with cirrhosis. 2. Cholelithiasis with mild gallbladder wall thickening with pericholecystic fluid possibly secondary to liver disease. Clinical correlation is recommended. If acute cholecystitis is a clinical concern, ultrasound of the gallbladder is recommended. 3. Large amount of ascites. 4. Generalized anasarca. Bosniak I and II: No follow-up is typically required unless the cyst becomes symptomatic. These cysts are considered benign and have a very low risk of malignancy. COMMENTS: Consistent with the [employer]'s Incidental Findings Committee white paper (J Am Isha Radiol 2018): Any incidental renal lesion less than 1 cm or classified as too small to characterize, or any incidental cystic renal lesion characterized as simple-appearing, is likely benign. No follow-up imaging is recommended for these lesions per consensus recommendations based on imaging criteria. Chest X-Ray 02/22/25 19:01 IMPRESSION: No acute cardiopulmonary abnormality. Laboratory Results WBC 4.65 10^3/uL (3.29-11.43) 02/22/25 15:30 RBC 3.46 10^6/uL (3.85-5.65) L 02/22/25 15:30 Hgb 8.70 g/dL (11.27-16.99) L 02/22/25 15:30 Hct 28.5 % (36-47) L 02/22/25 15:30 MCV 82.4 fl (85-98) L 02/22/25 15:30 MCH 25.1 pg (27-33) L 02/22/25 15:30 MCHC 30.5 g/dL (30-55) 02/22/25 15:30 RDW 22.4 % (12.1-15.1) H 02/22/25 15:30 Plt Count 70 10^3/cmm (157-399) L 02/22/25 15:30 MPV Not Reportable 02/22/25 15:30 Neut % (Auto) 53.6 % 02/22/25 15:30 Lymph % (Auto) 29.5 % 02/22/25 15:30 [place] % (Auto) 13.3 % 02/22/25 15:30 Eos % (Auto) 2.8 % 02/22/25 15:30 Baso % (Auto) 0.6 % 02/22/25 15:30 Neut # (Auto) 2.49 10^3/uL (1.8-7.7) 02/22/25 15:30 Lymph # (Auto) 1.4 10^3/uL (0.8-4.8) 02/22/25 15:30 [place] # (Auto) 0.6 10^3/uL (0.2-0.9) 02/22/25 15:30 Eos # (Auto) 0.1 10^3/uL (0.0-0.8) 02/22/25 15:30 Baso # (Auto) 0.0 10^3/uL (0.0-0.1) 02/22/25 15:30 Nucleated RBC % (auto) 0 % 02/22/25 15:30 Nucleated RBCs # 0.0 /100WBC 02/22/25 15:30 PT 21.20 SECONDS (12.1-14.9) H 02/22/25 15:30 INR 1.71 (0.8-1.2) H 02/22/25 15:30 Sodium 132 mmol/L (136-145) L 02/22/25 15:30 Potassium 3.0 mmol/L (3.5-5.1) L 02/22/25 15:30 Chloride 96 mmol/L (98-107) L 02/22/25 15:30 Carbon Dioxide 27 mmol/L (22-29) 02/22/25 15:30 Anion Gap 12.0 (5-19) 02/22/25 15:30 BUN 9 mg/dL (8-23) 02/22/25 15:30 Creatinine 0.5 mg/dL (0.5-0.9) 02/22/25 15:30 GFR Calculation 123.8 mL/min (90-130) 02/22/25 15:30 Glucose 96 mg/dL (65-115) 02/22/25 15:30 Calculated Osmolality 273 mOsm/kg (285-295) L 02/22/25 15:30 Calcium 8.0 mg/dL (8.5-10.5) L 02/22/25 15:30 Magnesium 1.9 mg/dL (1.7-2.3) 02/22/25 15:30 Iron 49 ug/dL (37-145) 02/22/25 15: Transferrin 162 mg/dL (200-360) L 02/22/25 15: Ferritin 26 ng/mL (15-150) 02/22/25 15:30 Total Bilirubin 4.7 mg/dL (0.15-1.2) H 02/22/25 15:30 AST 54 U/L (0-32) H 02/22/25 15:30 ALT 18 U/L (0-33) 02/22/25 15:30 Alkaline Phosphatase 134 U/L (35-105) H 02/22/25 15: Ammonia 38 umol/L (11-51) 02/22/25 15: Lactate Dehydrogenase 224 U/L (135-214) H 02/22/25 15:30 C-Reactive Protein 14.5 mg/L (0.0-4.9) H 02/22/25 15: NT-Pro-B Natriuret Pep 93 pg/mL (0-125) 02/22/25 15:30 Total Protein 7.2 g/dL (6.6-8.7) 02/22/25 15:30 Albumin 2.6 g/dL (3.5-5.2) L 02/22/25 15:30 Globulin 4.6 g/dL (1.3-4.6) 02/22/25 15:30 Lipase 100 U/L (13-60) H 02/22/25 15:30 Urine Color [place] (Yellow) A 02/22/25 17:02 Urine Appearance Clear (CLEAR) 02/22/25 17:02 Urine pH 5.5 (5-7) 02/22/25 17:02 Ur Specific [place] 1.018 (1.005-1.030) 02/22/25 17:02 Urine Protein Negative (Negative) 02/22/25 17:02 Urine Glucose (UA) Negative (Normal) 02/22/25 17:02 Urine Ketones Negative (Negative) 02/22/25 17:02 Urine Blood 2+ (Negative) A 02/22/25 17:02 Urine Nitrate Negative (Negative) 02/22/25 17:02 Urine Bilirubin 1+ (Negative) H 02/22/25 17:02 Urine Urobilinogen 1.0 mg/dL (Negative) 02/22/25 17:02 Ur Leukocyte Esterase 1+ (Negative) A 02/22/25 17:02 Urine RBC 6-10 /hpf (0-2) 02/22/25 17:02 Urine WBC 0-5 /hpf (0-5) 02/22/25 17:02 Ur Squamous Epith Cells 6-10 /hpf (0-5) 02/22/25 17:02 Amorphous Sediment Not Reportable 02/22/25 17:02 Urine Bacteria None seen /hpf (NONE) 02/22/25 17:02 Hyaline Casts 0.40 /lpf 02/22/25 17:02 Discharge Plan Discharge Patient Disposition: Xfer Short-Term Hosp Clinical Impression: Acute hepatitis, Elevated bilirubin, Thrombocytopenia, Acute hypokalemia, Low serum albumin, Acute hyponatremia, Microcytic anemia Ascites Qualifiers: Ascites type: other type Qualified Code(s): R18.8 - Other ascites Condition: Stable Discharge Diet: Low Salt Patient Instructions: Abdominal Pain (ED), Patient Portal & Anabella Instructions Print Language: Kazakh Coding Level of Care Code ED [facility] Psychiatrist for Esther Larry
[2025-02-22 15:46] VITALS: BP 116/67; PULSE 96; O2SAT 97
[2025-02-22 16:02] LABS: Alanine Aminotransferase 18 U/L (0-33); Albumin Level 2.6 g/dL (3.5-5.2); Alkaline Phosphatase 134 U/L (35-105); Ammonia 38 umol/L (11-51); Anion Gap 12.0 (5-19); Aspartate Amino Transferase 54 U/L (0-32); Blood Urea Nitrogen 9 mg/dL (8-23); Calcium 8.0 mg/dL (8.5-10.5); Carbon Dioxide 27 mmol/L (22-29); Chloride 96 mmol/L (98-107); Globulin 4.6 g/dL (1.3-4.6); Glucose 96 mg/dL (65-115); Lipase 100 U/L (13-60); NT Pro B Type Natriuretic Pept 93 pg/mL (0-125); Osmolality Calculated 273 mOsm/kg (285-295); Potassium 3.0 mmol/L (3.5-5.1); Sodium 132 mmol/L (136-145); Total Protein 7.2 g/dL (6.6-8.7)
[2025-02-22 16:40] LABS: Magnesium 1.9 mg/dL (1.7-2.3)
[2025-02-22 17:07] LABS: Ferritin 26 ng/mL (15-150); Iron 49 ug/dL (37-145); Transferrin 162 mg/dL (200-360)
[2025-02-22 17:11] LABS: Glucose Urine UA Negative (Normal); Nitrate Urine Negative (Negative); Specific Gravity, Urine 1.018 (1.005-1.030)
[2025-02-22] MEDS: iohexol 350 mg/mL 500 mL Btl (per mL) IV (17:12)
[2025-02-22 17:16] LABS: Add Urine Microscopic? YES
[2025-02-22] MEDS: FUROsemide 10 mg/mL SDV 10mL 80 MG IVP (17:35)
[2025-02-22 17:36] VITALS: BP 102/49; PULSE 97; O2SAT 97
[2025-02-22 19:01] LABS: INR 1.71 (0.8-1.2); Prothrombin Time 21.20 SECONDS (12.1-14.9)
--- NOTE | 2025-02-22 19:01 | XRR_ITS ---
PROCEDURE INFORMATION: Exam: XR Chest Exam date and time: 02/22/2025 7:05 PM Age: 64 years old Clinical indication: Shortness of breath; Additional info: Short of breath, [facility] TECHNIQUE: Imaging protocol: Radiologic exam of the chest. Views: 1 view. COMPARISON: CT abdomen pelvis w con* [id number] 02/22/2025 5:07 PM FINDINGS: Lungs: No active infiltrate or focal parenchymal abnormality. Pulmonary vascularity is normal. Pleural spaces: No pleural effusion. No pneumothorax. Heart/Mediastinum: Normal cardiomediastinal sillhouette. Bones/joints: Unremarkable. XR/XR chest 1V portable [id number] IMPRESSION: No acute cardiopulmonary abnormality.
[2025-02-22] MEDS: piperacillin-tazobactam 3.375 GM in sodium chloride 0.9% (plus) 50 ML IV (19:15)
[2025-02-22 19:19] VITALS: BP 127/64; PULSE 97; O2SAT 95
--- NOTE | 2025-02-22 20:10 | PC.NURSE ---
Pt decided to leave AMA after this nurse and PA spoke with her about needing further treatment. Pt acknowledged the risk of leaving and stated she will follow up with [facility].
== END 2025-02-22 20:05 | disposition short-term general hospital (02) ==
PROVIDERS: Emergency Medicine; Emergency Provider Physician Assistant
DX: B17.9 Acute viral hepatitis, unspecified (principal); D69.6 Thrombocytopenia, unspecified; E87.6 Hypokalemia; E87.1 Hypo-osmolality and hyponatremia; D50.9 Iron deficiency anemia, unspecified; R18.8 Other ascites; E80.7 Disorder of bilirubin metabolism, unspecified; R77.0 Abnormality of albumin
CPT/HCPCS: 71045; 74177; 80053; 81001; 82140; 82728; 83540; 83615; 83690; 83735; 83880; 84238; 84466; 85025; 85610; 86140; 87040; 96365; 96375; 99285; J1938; J2543; J9999

== ENCOUNTER → 2025-03-03 11:20 | Day surgery (SDC) | payer MEDICARE, MEDICAID, SELFPAY ==
--- NOTE | 2025-03-03 11:28 | US_ITS ---
WS: [id number] ULTRASOUND-GUIDED THERAPEUTIC PARACENTESIS Procedure, risks, and complications have been explained to the patient. Consent is obtained. Utilizing aseptic technique and 1% buffered lidocaine, a small dermatome was made through which a 5 [place] Yueh catheter was inserted. Approximately 5000 ml of clear peritoneal fluid was obtained without difficulty. No complications encountered. US/US paracentesis abd w [id number] IMPRESSION: Uncomplicated paracentesis yielding 5000 ml of peritoneal fluid.
[2025-03-03 11:35] VITALS: BP 121/65; PULSE 89; RESP 19; TEMP 36.2; O2SAT 95
[2025-03-03 11:37] VITALS: BMI 37.0
[2025-03-03 13:20] VITALS: BP 116/58; PULSE 92; RESP 17
== END ==
LOC: GILAB 11:24
PROVIDERS: Radiology Diagnostic Radiology; PCP Nurse Practitioner Family; Visit Provider Nurse Practitioner Family
PROC: (CPT 49082; principal; 2025-03-03 12:00)
DX: K74.60 Unspecified cirrhosis of liver (principal)
CPT/HCPCS: 49083; 96365; P9047

== ENCOUNTER 2025-03-10 11:29 | Day surgery (SDC) | payer MEDICARE, MEDICAID, SELFPAY ==
--- NOTE | 2025-03-10 11:39 | US_ITS ---
WS: [id number] ULTRASOUND-GUIDED PARACENTESIS CLINICAL INFORMATION: ascites COMPARISON: None. Procedure Informed consent: The risks, benefits, and alternatives of the procedure were discussed with the patient. Verbal and written consent was obtained. Timeout: A timeout was performed to confirm the correct patient, procedure, and site. Preparation: A suitable skin site was identified. The patient was prepped and draped in usual sterile fashion. Lidocaine 1% was used for local anesthesia. Catheter: 4 [place] One-step Yueh catheter. Side: RIGHT lower quadrant. Fluid Volume: 5000 ml Color: Clear yellow DISPOSITION: Discarded safely. Complications: None. Patient disposition: Discharged from the department in stable condition. US/US paracentesis abd w [id number] IMPRESSION: Uncomplicated ultrasound-guided paracentesis. Removal of 5000 cc
[2025-03-10 12:04] VITALS: BP 98/59; PULSE 86; RESP 18; TEMP 36.2; O2SAT 95
[2025-03-10 12:14] LABS: Hematocrit 27.1 % (36-47); Hemoglobin 8.80 g/dL (11.27-16.99); Mean Corpuscular HGB Conc 32.5 g/dL (30-55); Mean Corpuscular Hemoglobin 26.3 pg (27-33); Mean Corpuscular Volume 81.1 fl (85-98); Nucleated Red Blood Cells % 0 %; Platelet Count 80 10^3/cmm (157-399); Red Blood Count 3.34 10^6/uL (3.85-5.65); White Blood Count 5.73 10^3/uL (3.29-11.43)
[2025-03-10 12:35] LABS: Slide Review Slide Review Perform
[2025-03-10 12:45] LABS: Alanine Aminotransferase 19 U/L (0-33); Albumin Level 2.8 g/dL (3.5-5.2); Alkaline Phosphatase 102 U/L (35-105); Anion Gap 10.5 (5-19); Aspartate Amino Transferase 53 U/L (0-32); Blood Urea Nitrogen 11 mg/dL (8-23); Calcium 8.1 mg/dL (8.5-10.5); Carbon Dioxide 29 mmol/L (22-29); Chloride 87 mmol/L (98-107); Globulin 4.1 g/dL (1.3-4.6); Glucose 100 mg/dL (65-115); Osmolality Calculated 257 mOsm/kg (285-295); Sodium 124 mmol/L (136-145); Total Protein 6.9 g/dL (6.6-8.7)
[2025-03-10 12:48] LABS: Potassium 2.5 mmol/L (3.5-5.1)
[2025-03-10] MEDS: albumin 25 G/100 ML BAG 60 G IV (13:00)
--- NOTE | 2025-03-10 13:07 | PC.NURSE ---
Pt states she needs labs drawn today per Joni Lord. Orders noted in [facility] for CBC and CMP. Labs drawn. Critical K+ 2.5 called to Joni Lord. Provider to call in Rx for oral potassium to pt pharmacy. Instructed to return to [facility] clinic on Monday for another K+ level. Pt educated to go to ER for worsening symptoms.
== END 2025-03-10 13:13 | disposition home or self-care (01) ==
LOC: GILAB 11:32
PROVIDERS: Radiology Neuroradiology; PCP Nurse Practitioner Family; Visit Provider Nurse Practitioner Family
PROC: (CPT 49082; principal; 2025-03-10 13:00)
DX: R18.8 Other ascites (principal)
CPT/HCPCS: 49083; 80053; 85025; 96365; P9046

== ENCOUNTER → 2025-03-17 11:27 | Day surgery (SDC) | payer MEDICARE, MEDICAID, SELFPAY ==
[2025-03-17 11:36] VITALS: BP 116/70; PULSE 93; RESP 16; TEMP 36.4; O2SAT 96
--- NOTE | 2025-03-17 11:47 | US_ITS ---
WS: [id number] ULTRASOUND-GUIDED THERAPEUTIC PARACENTESIS Procedure, risks, and complications have been explained to the patient. Consent is obtained. Utilizing aseptic technique and 1% buffered lidocaine, a small dermatome was made through which a 5 [place] Yueh catheter was inserted. Approximately 3400 ml of clear peritoneal fluid was obtained without difficulty. No complications encountered. US/US paracentesis abd w [id number] IMPRESSION: Uncomplicated paracentesis yielding 3400 ml of peritoneal fluid.
== END ==
LOC: GILAB 11:28
PROVIDERS: Radiology Diagnostic Radiology; PCP Nurse Practitioner Family; Visit Provider Nurse Practitioner Family
PROC: (CPT 49082; principal; 2025-03-17 12:30)
DX: K74.60 Unspecified cirrhosis of liver (principal); R18.8 Other ascites
CPT/HCPCS: 49083